=== PATIENT | female | born 2000 | race Caucasian/White ===

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

== ENCOUNTER → 2019-01-03 12:14 | Outpatient (CLI) | payer OTHER, SELFPAY ==
[2017-05-26 14:07] VITALS: BMI 22.3
[2019-01-03 13:42] LABS: Internal QC Validated? YES +Cl - CLEAR BKGD
[2019-01-03 13:46] LABS: Pregnancy, Urine Negative Negative
== END ==
PROVIDERS: Family Provider Pediatrics; PCP Pediatrics; Referring Provider Dermatology Pediatric Dermatology; Visit Provider Dermatology Pediatric Dermatology
DX: L70.0 Acne vulgaris (principal); Z79.899 Other long term (current) drug therapy
CPT/HCPCS: 81025

== ENCOUNTER → 2019-01-04 08:12 | Outpatient (CLI) | payer OTHER, SELFPAY ==
[2017-05-26 14:07] VITALS: BMI 22.3
[2019-01-04 10:11] LABS: Absolute Lymphocyte Count 2.82 X10^3/uL (0.83-4.51); Absolute Neutrophil Count 4.5 X10^3/uL (2.0-7.7); Basophil# 0.06 X10^3/uL; Basophil% 0.8 % (0-1); Eosinophil# 0.13 X10^3/uL; Eosinophils% 1.6 % (0-5); Hemoglobin 12.7 g/dL (12.0-15.0); Lymphocyte # 2.82 X10^3/ul (4.0); Lymphocyte % 35.4 % (19-41); Mean Corp Hgb Conc 31.8 g/dL (32-36); Mean Corpuscular Hgb 27.7 pg (27.0-32.0); Mean Corpuscular Volume 87.1 fL (81-99); Mean Platelet Vol. 10.3 fl (6.2-12.0); Monocyte# 0.42 X10^3/uL; Monocyte% 5.3 % (0-10); NRBC Flagged by Analyzer 0 % (0-5); Neutrophil # 4.51 X10^3/uL (2.7-7.7); Neutrophil % 56.6 % (47-70); Platelet Count 381 K/mm3 (150-450); RBC Distribution Width CV 13.2 % (11.6-14.6); RBC Distribution Width SD 41.8 fl (35.1-43.9); Red Blood Count 4.59 M/mm3 (4.2-5.4)
[2019-01-04 10:24] LABS: hCG Titer Quant., Serum < 1 mIU/mL (1-3)
[2019-01-04 10:26] LABS: AST(SGOT) 16 U/L (15-37); Alanine Aminotransfer ALT/SGPT 17 U/L (13-56); Albumin, Serum 3.4 g/dL (3.2-5.0); Alkaline Phosphatase 64 U/L (45-117); Bilirubin, Direct < 0.05 mg/dL (0.00-0.30); Cholesterol 185 mg/dL (200); Globulin 4.5 g/dL (2.2-4.2); High Density Lipoprotein 51 mg/dL; Protein, Total 7.9 g/dL (6.4-8.2); Triglycerides 142 mg/dL; Very Low Density Lipoprotein 28 mg/dL (5-40)
== END ==
PROVIDERS: Family Provider Pediatrics; PCP Pediatrics; Referring Provider Dermatology Pediatric Dermatology; Visit Provider Dermatology Pediatric Dermatology
DX: L70.0 Acne vulgaris (principal); Z79.899 Other long term (current) drug therapy
CPT/HCPCS: 36415; 80061; 80076; 84702; 85025

== ENCOUNTER → 2019-01-27 11:53 | Outpatient (CLI) | payer OTHER, SELFPAY ==
[2019-01-26 10:43] VITALS: BMI 22.3
[2019-01-27 14:24] LABS: Internal QC Validated? YES +Cl - CLEAR BKGD; Pregnancy, Urine Negative Negative
== END ==
PROVIDERS: Family Provider Pediatrics; PCP Pediatrics; Referring Provider Nurse Practitioner Family; Visit Provider Nurse Practitioner Family
DX: L70.0 Acne vulgaris (principal); Z79.899 Other long term (current) drug therapy
CPT/HCPCS: 81025

== ENCOUNTER → 2019-03-11 16:18 | Outpatient (CLI) | payer OTHER, SELFPAY ==
[2019-01-26 10:43] VITALS: BMI 22.3
[2019-03-11 17:48] LABS: Internal QC Validated? YES +Cl - CLEAR BKGD; Pregnancy, Urine Negative Negative
== END ==
PROVIDERS: Family Provider Pediatrics; PCP Pediatrics; Referring Provider Nurse Practitioner Family; Visit Provider Nurse Practitioner Family
DX: L70.0 Acne vulgaris (principal); Z79.899 Other long term (current) drug therapy
CPT/HCPCS: 81025

== ENCOUNTER → 2019-05-11 12:35 | Outpatient (CLI) | payer OTHER, SELFPAY ==
[2019-01-26 10:43] VITALS: BMI 22.3
[2019-05-11 14:46] LABS: Progesterone Level 0.33 ng/mL (See Comment)
[2019-05-11 15:09] LABS: Estradiol < 11.0 pg/mL; Free T3 2.7 pg/mL (2.18-3.98); T4 Free Direct 0.94 ng/dL (0.76-1.46); Thyroid Stim Hormone (TSH) 1.42 uIU/mL (0.358-3.74)
[2019-05-12 11:09] LABS: DHEA Sulfate 245.9 ug/dL (110.0-433.2)
== END ==
PROVIDERS: Family Provider Pediatrics; PCP Pediatrics; Referring Provider Specialist; Visit Provider Specialist
DX: N95.1 Menopausal and female climacteric states (principal); E03.8 Other specified hypothyroidism; R53.81 Other malaise
CPT/HCPCS: 36415; 82627; 82670; 84144; 84403; 84439; 84443; 84481; 82626

== ENCOUNTER → 2020-01-23 11:03 | Outpatient (CLI) | payer OTHER, SELFPAY ==
[2020-01-23 10:48] VITALS: BMI 22.3
[2020-01-23 12:00] LABS: Estradiol 69.5 pg/mL; Follicle Stimulating Hormone 4.6 mIU/mL; Prolactin 12.5 ng/mL
[2020-01-25 03:21] LABS: Vitamin D 1,25-Dihydroxy 59.6 pg/mL (19.9-79.3)
== END ==
PROVIDERS: PCP Pediatrics; Referring Provider Nurse Practitioner Women's Health; Visit Provider Nurse Practitioner Women's Health
DX: N91.5 Oligomenorrhea, unspecified (principal); R79.89 Other specified abnormal findings of blood chemistry
CPT/HCPCS: 36415; 82652; 82670; 83001; 84146